=== PATIENT | female | born 1990 | race Hispanic/Latino ===

== ENCOUNTER 2021-10-12 17:18 | Emergency (ER) | payer BC ==
--- OUTSIDE RECORDS SUMMARY | 2021-10-12 17:22 | XMS REPORT | Continuity of Care Document ---
:1990 Author Organization [facility] t Address [address] [place] [place] [address] Care Team Providers Name Role Phone Kassie MEDRANO Primary Care Physician Unavailable EBRAHIBridget Attending Clinician Unavailable Ebrahim UNDERBASTER Attending Clinician Kassie Medrano MD Attending Clinician JHON Attending Clinician Unavailable Kassie TUBBS Attending Clinician Unavailable BROOKE Attending Clinician Unavailable ANENE Attending Clinician Unavailable Payers Payer Name Policy Type Policy Number Effective Date Expiration Date S [facility] [id number] 2018 00:00:00 OUT OF STATE Problems Condition Condition Condition Status Onset Resolution Last Treating Co mments Source Name Details Category Date Date Treatment Clinician Date Anxiety Anxiety Disease Active Univers disorder disorder 01-03 ity of 00:00: [address] Type 2 Type 2 Disease Active Overview: Univer s diabetes diabetes 01-03 Formattin ity of mellitus mellitus 00:00: g of this Daniel as without without 00 note Medical complicati complicati might be Branch on, on, different without without from the long-term long-term original. current current Normal use of use of A1c and insulin insulin glucose 12/2016 without antidiabe tic medicatio n, but insulin level mildly elevated. Exercise-i Exercise-i Disease Active U nivers nduced nduced 01-03 ity of asthma asthma 00:00: [address] Branch Morbid Morbid Disease Active Univers obesity obesity 4-11 ity of with BMI with BMI 00:00: [place] of of 00 Medical 45.0-49.9, 45.0-49.9, Br anch adult adult Bipolar Bipolar Disease Active Univers depression depression 5-17 it y of 00:00: [place] 00 Medical Branch Screening Screening Disease Active 2014-09 Uni vers examinatio examinatio - it y of n for STD n for STD [place] ([place]ually (sexually 00 Medi diaz transmitte transmitte Br anch d disease) d disease) Screening Screening Disease Active 2014-09 Uni vers for for 10-13 ity of rubella rubella 00:00: [place] 00 Medical Branch Allergies, Adverse Reactions, Alerts Allergy Allergy Status Severity Reaction(s) Onset Inactive Treating Comm ents Source Name Type Date Date Clinician Strawber Propensi Active Anaphylaxis U nivers ry ty to 06-01 ity of adverse 00:00: [place] reaction 00 Medical s Branch STRAWBER DRUG Active Anaphylaxis Uni vers RY INGREDI 06-01 ity of 00:00: [place] 00 Medical Branch Social History Social Habit Start Date Stop Date Quantity Comments Source Exposure to Not sure [facility] SARS-CoV-2 (event) Medica l Branch Alcohol intake 2020-07-16 2020-07-16 0 /d [facility] 00:00:00 00:00:00 Medical Branch Sex Ass[birth year] [facility] [place] 00:00:00 00:00:00 Medical Branch Smoking Status Start Date Stop Date Source Never smoker [facility] acute [facility] Branch Medications Ordered Filled Start Stop Current Ordering Indication Dosage Frequency Signature Comments Components Source Medication Medication Date Date Medication? Clinician (SIG) Name Name fluticasone 2019-09 Yes [id number] 2{spray Use 2 Univers propionate 0-22 } Sprays in ity of 50 00:00: each [place] mcg/actuati 00 nostril Medic al on nasal daily. Branch spray fluticasone 2019-09 Yes [id number] 2{spray Use 2 Univers propionate 0-22 } Sprays in ity of 50 00:00: each [place] mcg/actuati 00 nostril Medic al on nasal daily. Branch spray albuterol Yes [id number] 2{puff} Inhale 2 Univers 90 3-16 Puffs ity of mcg/actuati 00:00: every 6 Daniel as on inhaler 00 (six) Medical hours as Branch needed for Wheezing or Shortness of Breath. albuterol Yes [id number] 2{puff} Inhale 2 Univers 90 3-16 Puffs ity of mcg/actuati 00:00: every 6 Daniel as on inhaler 00 (six) Medical hours as Branch needed for Wheezing or Shortness of Breath. albuterol Yes [id number] 2.5mg Inhale 3 Univers 2.5 mg /3 05-03 62123 mL every 4 ity of mL (0.083 00:00: (four) [place] %) 00 hours as Medical nebulizer needed for Bran ch solution Wheezing or Shortness of Breath. Via nebulizer albuterol Yes [id number] 2.5mg Inhale 3 Univers 2.5 mg /3 05-03 62142 mL every 4 ity of mL (0.083 00:00: (four) [place] %) 00 hours as Medical nebulizer needed for Bran ch solution Wheezing or Shortness of Breath. Via nebulizer Nebulizer & Yes [id number] Use as Univers Compressor 2-01 directed; ity of For Neb 00:00: Dx code [place] Geetha 00 J45.90 [facility] Branch Nebulizer & Yes [id number] Use as Univers Compressor 2-01 directed; ity of For Neb 00:00: Dx code [place] Geetha 00 J45.90 [facility] Immunizations Ordered Filled Immunization Date Status Comments [facility] Immunization Name Name Influenza Virus 2019-09-13 Completed Universit y of Vaccine (3+ yrs) 00:00:00 [facility] Influenza Virus 2019-09-13 Completed Universit y of Vaccine (3+ yrs) 00:00:00 [facility] TDAP 2012-05-15 Completed [facility] 00:00:00 [facility] TDAP 2012-05-15 Completed [facility] 00:00:00 [facility] Vital Signs Vital Name Observation Time Observation Value Comments Source Systolic blood 2021-10-08 17:24:00 106 mm[Hg] Univer sity of pressure [facility] Diastolic blood 2021-10-08 17:24:00 68 mm[Hg] Unive rsity of pressure [facility] Heart rate 2021-10-08 17:24:00 88 /min [facility] Body temperature 2021-10-08 17:24:00 37.17 Marli [facility] Respiratory rate 2021-10-08 17:24:00 18 /min [facility] Body height 2021-10-08 17:24:00 162.6 cm [facility] Body weight 2021-10-08 17:24:00 127.869 kg [facility] BMI 2021-10-08 17:24:00 48.39 kg/m2 [facility] Oxygen saturation in 2021-10-08 17:24:00 97 /min [facility] Arterial blood by [facility] Pulse oximetry Bricelyn Procedures Procedure Date / Time Performed Performing Clinician Sourc e POCT MOLECULAR STREP 2021-10-08 17:29:00 Siria [place] [facility] Encounters Start End Encounter Admission Attending Care Care Encounter Source Date/Time Date/Time Type Type Clinicians Facility Department ID 2021-07-23 Emergency [facility] [id number] Univers 19:22:34 ity [facility] 2021-10-12 2021-10-12 Outpatient [facility] [id number] Univers 17:00:00 17:00:00 [id number] [facility] 2021-10-08 2021-10-08 Outpatient R JACINTO [facility] [id number] Univers 11:20:00 11:47:48 SIRIA [facility] 2021-10-08 2021-10-08 Urgent [facility] [id number] Univers 11:20:00 11:40:00 Care [facility] [id number] it y of [place] [id number] Daniel as ERIC?BLEA [id number] [address] MEDICAL OFFICE BUILDING 2021-10-08 2021-10-08 Outpatient R [facility] [id number] Univers 11:20:00 11:20:00 [id number] ity [facility] 2021-10-08 2021-10-08 Outpatient R [facility] [id number] Univers 10:00:00 10:00:00 ity of [facility] 2021-09-21 2021-09-21 Outpatient R [facility] [id number] Univers 10:20:00 10:20:00 [id number] ity of [facility] 2021-09-21 2021-09-21 Outpatient R [facility] [id number] Univers 10:20:00 10:20:00 ity of [facility] 2021-05-28 2021-05-28 [facility] [id number] Univers 00:00:00 00:00:00 [employer] [place] [id number] ity [facility] [id number] Daniel as Eric?Blea [id number] De heathermajo leanne[address] Medical Office Building 2021-05-05 2021-05-05 Outpatient [facility] [id number] Univers 15:20:00 15:20:00 [id number] ity of [facility] 2021-05-04 2021-05-04 Outpatient R [facility] [id number] Univers 15:40:00 15:40:00 [id number] ity of [facility] 2021-05-04 2021-05-04 [facility] [id number] Univers 15:40:00 15:40:00 ROCKY ity o f [facility] 2021-01-20 2021-01-20 Outpatient [facility] [id number] Univers 14:20:00 14:20:00 [id number] ity of [facility] 2020-07-16 2020-07-16 Outpatient [facility] [id number] Univers 10:00:00 10:00:00 [id number] ity of [facility] 2020-07-16 2020-07-16 [facility] [id number] Univers 10:00:00 10:00:00 KARMA ity of [facility] 2020-06-16 2020-06-16 Outpatient R [facility] [id number] Univers 19:10:00 19:10:00 [id number] ity of [facility] 2020-06-16 2020-06-16 [facility] [id number] Univers 19:10:00 19:10:00 [place] [facility] 2020-03-31 2020-03-31 Outpatient R [facility] [id number] Univers 16:40:00 16:40:00 [facility] 2020-03-31 2020-03-31 [facility] [id number] Univers 16:40:00 16:40:00 RACHELL [facility] Results Test Description Test Time Test Comments Results Result Comments Source POCT MOLECULAR STREP 2021-10-08 17:36:50 Test Item Value Reference Range Interpretation Comme nts POCT Molecular Strep (test code = 05626-6) Negative Negative Lab Interpretation (test code = 31292-2) Normal [facility]
--- NOTE | 2021-10-12 18:17 | RAD REPORT ---
EXAM DESCRIPTION: Chris Villafuerte (2 Views)10/12/2021 6:08 pm CLINICAL HISTORY: Cough COMPARISON: 2014 FINDINGS: The lungs appear clear of acute infiltrate. The heart is normal size IMPRESSION: No acute abnormalities displayed
--- NOTE | 2021-10-12 19:07 | ER ---
Nurse's Notes [facility] Name: Lydia Foreman Age: 31 yrs Sex: Female : 1990 Arrival Date: 10/12/2021 Time: 17:26 Bed 12 Private MD: Diagnosis: Coronavirus infection, unspecified Presentation: 10/12 17:47 Chief complaint: Patient states: Diagnosis with Covid on Monday10/09/2021 and ww complaining of shortness of breath that started yesterday. Coronavirus screen: Vaccine status: Patient reports receiving the 2nd dose of the covid vaccine. Client denies travel out of the [place] in the last 14 days. Ebola Screen: Patient negative for fever greater than or equal to 101.5 degrees Fahrenheit, and additional compatible Ebola Virus Disease symptoms Patient denies exposure to infectious person. Patient denies travel to an Ebola-affected area in the 21 days before illness onset. Initial Sepsis Screen: Does the patient meet any 2 criteria? No. Patient's initial sepsis screen is negative. Does the patient have a suspected source of infection? No. Patient's initial sepsis screen is negative. Risk Assessment: Do you want to hurt yourself or someone else? Patient reports no desire to harm self or others. Onset of symptoms was October 11, 2021. 17:47 Method Of Arrival: Ambulatory ww 17:47 Acuity: CANDIS 4 ww Triage Assessment: 17:48 General: Appears in no apparent distress. comfortable, Behavior is calm, cooperative, ww appropriate for age. Pain: Denies pain. EENT: No deficits noted. No signs and/or symptoms were reported regarding the EENT system. Neuro: Level of Consciousness is awake, alert, obeys commands, Oriented to person, place, time, situation. Cardiovascular: Reports shortness of breath, Denies chest pain. Respiratory: Reports shortness of breath cough that is Airway is patent Respiratory effort is even, unlabored, Respiratory pattern is regular, symmetrical. GI: No deficits noted. : No deficits noted. No signs and/or symptoms were reported regarding the genitourinary system. Derm: No deficits noted. Musculoskeletal: No deficits noted. 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 - Social history:: Smoking status: Patient denies any tobacco usage or history of. Screenin:50 Abuse screen: Denies threats or abuse. Denies injuries from another. Nutritional ww screening: No deficits noted. Tuberculosis screening: No symptoms or risk factors identified. Fall Risk None identified. Vital Signs: 17:47 BP 153 / 73; Pulse 111; Resp 18; Temp 97.2; Pulse Ox 99% on R/A; Weight 123.38 kg; ww Height 5 ft. 4 in. (162.56 cm); Pain 0/10; 17:47 Body Mass Index 46.69 (123.38 kg, 162.56 cm) ww ED Course: 17:26 Patient arrived in ED. ds1 17:48 Triage completed. ww 17:48 Arm band placed on left wrist. ww 17:58 Joann Kurtz FNP-C is [facility]. kb 17:58 Theodore Trevizo MD is Attending Physician. kb 18:08 Chest Pa And Lat (2 Views) XRAY In Process Unspecified. EDMS 19:08 Daya Fong, RN is Primary Nurse. [facility] 19:08 No provider procedures requiring assistance completed. Patient did not have IV access [facility] during this emergency room visit. 19:09 Patient has correct armband on for positive identification. Bed in low position. Call 5 light in reach. Side rails up X 1. Administered Medications: No medications were administered Outcome: 19:07 Discharge ordered by . kb 19:08 Discharged to home ambulatory. jh5 19:08 Condition: good 19:08 Discharge instructions given to patient, Instructed on discharge instructions, follow up and referral plans. safety practices. 19:11 Patient left the ED. 5 Signatures: Dispatcher [employer] EDKS Joann Kurtz FNP-C FNP-Ckb [place], Demi ds1 Daya Fong, RN RN 5 Roxane Wu RN RN sánchez
--- NOTE | 2021-10-12 19:07 | EDPHYS ---
Physician Documentation [facility] Name: Lydia Foreman Age: 31 yrs Sex: Female : 1990 Arrival Date: 10/12/2021 Time: 17:26 Bed 12 Private MD: ANDRES Physician Theodore Trevizo HPI: 10/12 23:00 This 31 yrs old Female presents to ER via Ambulatory with complaints of Covid kb + SOB. 23:00 The patient or guardian reports cough, that is intermittent, described as mild, kb difficulty breathing. Onset: The symptoms/episode began/occurred 3 day(s) ago. Severity of symptoms: At their worst the symptoms were moderate, in the emergency department the symptoms are unchanged. Modifying factors: The symptoms are alleviated by nothing, the symptoms are aggravated by nothing. Associated signs and symptoms: Pertinent positives: diarrhea, nausea, vomiting. The patient has not experienced similar symptoms in the past. The patient has not recently seen a physician. Pt states she was diagnosed with covid on 10/09/21. States she started having n/v/d yesterday and shortness of breath today. 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 - Social history:: Smoking status: Patient denies any tobacco usage or history of. ROS: 23:00 Constitutional: Negative for fever, chills, and weight loss. kb 23:00 Respiratory: Positive for cough, shortness of breath, Negative for dyspnea on exertion, hemoptysis, orthopnea, pleurisy, sputum production, wheezing. 23:00 Abdomen/GI: Positive for nausea, vomiting, and diarrhea, Negative for abdominal pain. 23:00 All other systems are negative. Exam: 23:00 Constitutional: This is a well developed, well nourished patient who is awake, alert, kb and in no acute distress. Head/Face: Normocephalic, atraumatic. ENT: Moist Mucous membranes Cardiovascular: Regular rate and rhythm with a normal S1 and S2. No gallops, murmurs, or rubs. No pulse deficits. Respiratory: Respirations even and unlabored. No increased work of breathing. Talking in full sentences Abdomen/GI: Soft, non-tender. No distention Skin: Warm, dry with normal turgor. Normal color. MS/ Extremity: Pulses equal, no cyanosis. Neurovascular intact. Full, normal range of motion. Neuro: Awake and alert, GCS 15, oriented to person, place, time, and situation. Moves all extremities. Normal gait. Psych: Awake, alert, with orientation to person, place and time. Behavior, mood, and affect are within normal limits. Vital Signs: 17:47 BP 153 / 73; Pulse 111; Resp 18; Temp 97.2; Pulse Ox 99% on R/A; Weight 123.38 kg; ww Height 5 ft. 4 in. (162.56 cm); Pain 0/10; 17:47 Body Mass Index 46.69 (123.38 kg, 162.56 cm) ww MDM: 18:45 Patient medically screened. kb 22:56 Data reviewed: vital signs, nurses notes. Data interpreted: Pulse oximetry: on room air kb is 99 %. Interpretation: normal. Counseling: I had a detailed discussion with the patient and/or guardian regarding: the historical points, exam findings, and any diagnostic results supporting the discharge/admit diagnosis, radiology results, the need for outpatient follow up, a family practitioner, to return to the emergency department if symptoms worsen or persist or if there are any questions or concerns that arise at home. 10/12 17:58 Order name: Chest Pa And Lat (2 Views) XRAY; Complete Time: 18:21 kb Administered Medications: No medications were administered Disposition: 10/13 08:26 Co-signature as Attending Physician, Theodore Trevizo MD I agree with the assessment and cuong plan of care. Disposition Summary: 10/12/21 19:07 Discharge Ordered Location: Home kb Condition: Stable kb Diagnosis - Coronavirus infection, unspecified kb Followup: kb - With: Emergency Department - When: As needed - Reason: Worsening of condition Followup: kb - With: Private Physician - When: 2 - 3 days - Reason: Recheck today's complaints, Continuance of care, Re-evaluation by your physician Discharge Instructions: - Discharge Summary Sheet kb - Viral Respiratory Infection, [id number] kb - COVID-19 kb Forms: - Medication Reconciliation Form kb - Work release form kb - Thank You Letter kb - Antibiotic Education kb - Prescription Opioid Use kb Prescriptions: - Zofran 4 mg Oral Tablet - take 1 tablet by ORAL route every 6 hours As needed; 20 tablet; Refills: 0, kb Product Selection Permitted Signatures: Dispatcher [employer] Joann Bella, ROLL REPAIRER-C ROLL REPAIRER-Theodore Ren MD MD cha Wood, Whitney, RN RN ww
[2021-10-12 19:45] VITALS: BP 153/73; TEMP 97.2; O2SAT 99
== END 2021-10-12 19:11 | disposition home or self-care (01) ==
LOC: ER 17:18
DX: U07.1 COVID-19 (principal)
CPT/HCPCS: 71046; 99283